=== PATIENT | female | born 1970 | race Hispanic/Latino ===

== ENCOUNTER 2017-02-15 09:13 | Emergency (ER) | payer SELFPAY ==
[~2017-02-15] VITALS: Ht 157.5 cm; Wt 90.0 kg
[2017-02-15 10:44] LABS: HEMATOCRIT 34.4 % (37.0-47.0); HEMOGLOBIN 10.2 g/dl (12.0-16.0); IMMATURE GRANULOCYTES 0.3 % (0.0-1.0); MEAN CELL VOLUME 67.2 fL CALC (80.0-100.0); MEAN CORPUSCULAR HGB 19.9 pG CALC (26.0-32.0); MEAN CORPUSCULAR HGB CONC 29.7 g/L CALC (32.0-36.0); NEUT# 7.47 thou/uL (2.00-7.15); RED BLOOD COUNT 5.12 mill/uL (4.20-5.60); RED CELL DISTRI WIDTH 17.2 % (11.5-15.5)
[2017-02-15 10:45] LABS: URINE BILIRUBIN - DIPSTICK NEGATIVE (NEGATIVE); URINE BLOOD DIPSTICK NEGATIVE (NEGATIVE); URINE CLARITY CLOUDY; URINE COLOR YELLOW; URINE GLUCOSE - DIPSTICK >=1000 mg/dL (NEGATIVE); URINE KETONE TRACE mg/dL (NEGATIVE); URINE LEUK ESTERASE NEGATIVE (NEGATIVE); URINE NITRITE - DIPSTICK POSITIVE (Negative); URINE PH 6.5 (4.5-8.0); URINE PROTEIN - DIPSTICK 100 mg/dL (NEG-TRACE)
[2017-02-15 10:46] LABS: URINE BACTERIA MANY hpf; URINE EPITHELIAL CELLS MANY EPI/hpf (0-FEW)
[2017-02-15 10:57] LABS: ALBUMIN 4.3 g/dL (3.2-5.0); ALKALINE PHOSPHATASE 129 u/l (38-126); AMYLASE 38 u/l (30-110); ANION GAP 16 (6-22 (CALC)); BILIRUBIN, TOTAL 0.5 mg/dL (0.0-1.4); BUN 10 mg/dL (7-17); BUN/CREATININE RATIO 19 (12-20 (CALC)); CALCIUM 9.4 mg/dL (8.4-10.2); CARBON DIOXIDE 22 mmol/l (22-30); CHLORIDE 105 mmol/l (95-108); CREATININE 0.5 mg/dL (0.5-1.0); GFR > 60 ML/MIN (>=60 (CALC)); GFR FOR AFR.AMER. > 60 ML/MIN (>=60 (CALC)); GLUCOSE 270 mg/dL (65-105); LIPASE 64 u/l (23-300); SGOT/AST 17 u/l (14-36); SGPT/ALT 19 u/l (9-52); SODIUM 139 mmol/l (137-146); TOTAL PROTEIN 7.9 g/dL (6.3-8.2)
[2017-02-15 11:08] LABS: MYOGLOBIN 18 ng/mL (0 - 62)
[2017-02-15] MEDS ORDERED: PERCOCET 5/325M1 TAB PO (11:12)
[2017-02-15] MEDS ORDERED: KEFLEX500 MG PO (11:12)
[2017-02-15 12:34] VITALS: BP 141/95
== END 2017-02-15 12:50 | disposition home or self-care (01) | DRG 690 ==
LOC: ED 09:13
PROVIDERS: Emergency Medicine
DX: N12 Tubulo-interstitial nephritis, not specified as acute or chronic (principal); B96.20 Unspecified Escherichia coli [E. coli] as the cause of diseases classified elsewhere; R10.11 Right upper quadrant pain; R10.9 Unspecified abdominal pain

== ENCOUNTER 2019-01-11 20:59 | Emergency (ER) | payer SELFPAY ==
[~2019-01-11] VITALS: Ht 157.5 cm; Wt 82.0 kg
[~2019-01-11 20:59] MED LIST: KEFLEX500 MG PO; PERCOCET 5/325M1 TAB PO
[2019-01-11 22:16] LABS: URINE BILIRUBIN - DIPSTICK NEGATIVE (NEGATIVE); URINE BLOOD DIPSTICK NEGATIVE (NEGATIVE); URINE COLOR YELLOW; URINE GLUCOSE - DIPSTICK NEGATIVE (NEGATIVE); URINE KETONE NEGATIVE (NEGATIVE); URINE LEUK ESTERASE NEGATIVE (NEGATIVE); URINE NITRITE - DIPSTICK NEGATIVE (Negative); URINE PROTEIN - DIPSTICK NEGATIVE (NEG-TRACE); URINE UROBILINOGEN - DIPSTICK 0.2 E.U./dL (0.2)
[2019-01-11 22:39] LABS: HEMATOCRIT 38.7 % (37.0-47.0); HEMOGLOBIN 11.9 g/dl (12.0-16.0); IMMATURE GRANULOCYTES 0.2 % (0.0-5.0); MEAN CORPUSCULAR HGB 22.1 pG CALC (26.0-32.0); MEAN CORPUSCULAR HGB CONC 30.7 g/L CALC (32.0-36.0); NEUT# 6.81 thou/uL (2.00-7.15); RED BLOOD COUNT 5.39 mill/uL (4.20-5.60); RED CELL DISTRI WIDTH 16.9 % (11.5-15.5)
[2019-01-11 22:51] LABS: MEAN CELL VOLUME 71.8 fL CALC (80.0-100.0)
[2019-01-11 23:02] LABS: ALBUMIN 4.2 g/dL (3.2-5.0); ALKALINE PHOSPHATASE 70 u/l (38-126); ANION GAP 15 (6-22 (CALC)); BILIRUBIN, TOTAL 0.3 mg/dL (0.0-1.4); BUN 11 mg/dL (7-17); BUN/CREATININE RATIO 25 (12-20 (CALC)); CARBON DIOXIDE 23 mmol/l (22-30); CHLORIDE 103 mmol/l (95-108); CREATININE 0.4 mg/dL (0.5-1.0); GFR > 60 ML/MIN (>=60 (CALC)); GFR FOR AFR.AMER. > 60 ML/MIN (>=60 (CALC)); LIPASE 59 u/l (23-300); POTASSIUM 4.1 mmol/l (3.5-5.1); SGOT/AST 13 u/l (14-36); SODIUM 137 mmol/l (137-146); TOTAL PROTEIN 7.4 g/dL (6.3-8.2)
[2019-01-11 23:03] LABS: AMYLASE < 30 u/l (30-110)
[2019-01-12] MEDS ORDERED: LOMOTIL2.5 MG PO (00:24)
[2019-01-12 00:50] VITALS: BP 151/69
== END 2019-01-12 00:50 | disposition home or self-care (01) | DRG 392 ==
LOC: ED 20:59
PROVIDERS: Emergency Medicine
DX: K52.9 Noninfective gastroenteritis and colitis, unspecified (principal)

== ENCOUNTER 2019-04-05 | Inpatient (IN) | payer SELFPAY ==
--- NOTE | 2019-04-03 14:53 | NUR ---
AMULATED TO ROOM WITH STEADY GAIT
[2019-04-03 15:25] LABS: HEMATOCRIT 35.7 % (37.0-47.0); HEMOGLOBIN 10.9 g/dl (12.0-16.0); IMMATURE GRANULOCYTES 0.3 % (0.0-5.0); MEAN CELL VOLUME 74.7 fL CALC (80.0-100.0); MEAN CORPUSCULAR HGB 22.8 pG CALC (26.0-32.0); MEAN CORPUSCULAR HGB CONC 30.5 g/L CALC (32.0-36.0); NEUT# 6.47 thou/uL (2.00-7.15); RED BLOOD COUNT 4.78 mill/uL (4.20-5.60); RED CELL DISTRI WIDTH 15.4 % (11.5-15.5)
[2019-04-03 15:47] LABS: ALBUMIN 4.1 g/dL (3.2-5.0); ALKALINE PHOSPHATASE 83 u/l (38-126); ANION GAP 13 (6-22 (CALC)); BILIRUBIN, TOTAL 0.3 mg/dL (0.0-1.4); BUN 12 mg/dL (7-17); BUN/CREATININE RATIO 20 (12-20 (CALC)); CARBON DIOXIDE 25 mmol/l (22-30); CHLORIDE 103 mmol/l (95-108); CREATININE 0.6 mg/dL (0.5-1.0); GFR > 60 ML/MIN (>=60 (CALC)); GFR FOR AFR.AMER. > 60 ML/MIN (>=60 (CALC)); LIPASE 36 u/l (23-300); POTASSIUM 3.6 mmol/l (3.5-5.1); SGOT/AST 12 u/l (14-36); SODIUM 136 mmol/l (137-146); TOTAL PROTEIN 7.5 g/dL (6.3-8.2)
--- NOTE | 2019-04-03 15:51 | NUR ---
PATIENT REPORTS ABD PAIN 5/10 AFTER BEING MEDICATED WITH TORADOL IV.
--- NOTE | 2019-04-03 16:38 | NUR ---
PATIENT AMBULATES TO AND FROM BATHROOM WITH STEADY GAIT.
--- NOTE | 2019-04-03 17:00 | NUR ---
PATIENT REPORTS BEING ON MENSTRUAL CYCLE. URINE SAMPLE COLLECTED.
[2019-04-03 17:17] LABS: URINE BILIRUBIN - DIPSTICK NEGATIVE (NEGATIVE); URINE BLOOD DIPSTICK MODERATE (NEGATIVE); URINE COLOR YELLOW; URINE GLUCOSE - DIPSTICK 500 mg/dL (NEGATIVE); URINE KETONE TRACE mg/dL (NEGATIVE); URINE LEUK ESTERASE NEGATIVE (NEGATIVE); URINE NITRITE - DIPSTICK NEGATIVE (Negative); URINE PROTEIN - DIPSTICK NEGATIVE (NEG-TRACE); URINE UROBILINOGEN - DIPSTICK 0.2 E.U./dL (0.2)
[2019-04-03 17:27] LABS: URINE SQUAMOUS EPITHELIAL CELL FEW EPI/hpf (0-FEW)
--- NOTE | 2019-04-03 17:54 | NUR ---
AT BEDSIDE TO DISCUSS RESULTS AND PLAN OF CARE.
--- NOTE | 2019-04-03 18:50 | NUR ---
BEDSIDE REPORT DONE WITH MARNI GATES
--- NOTE | 2019-04-03 18:50 | NUR ---
BEDSIDE REPORT GIVEN TO MARNI DAVIS. CARE RELINQUISHED.
--- NOTE | 2019-04-03 19:50 | NUR ---
ADMIT ORDERS RECEIVED, FAMILY AT BEDSIDE.
--- NOTE | 2019-04-03 20:50 | NUR ---
INFOMRED PT ADMIT DOCTOR PUT IN NPO AND REGULAR DIET THE FLOOR WILL VERIFY WITH THE PMD AND LET PT KNOW IF SHE CAN EAT.
--- NOTE | 2019-04-03 21:08 | NUR ---
REPORT REC FROM CHRISTIANO GRIDER
--- NOTE | 2019-04-03 21:09 | NUR ---
Admission Note Report Given to: MARJORIE CRAIG Transported by: X Wheelchair Stretcher Transported with: X Nurse Transporter X Patent IV O2 Blocking Machine Tender Location: ICU X MS2 PT TRANSPORTED BY MARNI MARQUEZ INSIDE SALES ADVISOR
--- NOTE | 2019-04-03 21:12 | NUR ---
PT ARRIVED TO MD VIA WC ACCOMPANIED BY COLLEEN RN AND . PT TRANSPORTED TO THE BED WITH A STEADY GAIT. A&O X3. PT STATES PAIN IS 2/10. ORIENTED PT TO ROOM. MOHAN DOROTEO APPLIED. EXPLAINED TO PT THAT SHE WAS ABLE TO HAVE SOMETHING TO EAT UNTIL MIDNIGHT, AFTER MIDNIGHT NPO STATUS WOULD BEGIN, EXPLAINED REASONING BEHIND INTERVENTION, PT VERBALIZED UNDERSTANDING. CLEAR LUNG SOUNDS APON AUSCULTATION. NO EDEMA NOTED. DISCUSSED POC. ASSESSMENT COMPLETED. CALL LIGHT IN REACH. CONTINUE TO MONITOR.
[2019-04-03 21:20] VITALS: BP 151/71
--- NOTE | 2019-04-03 22:05 | NUR ---
ATTEMPT MADE TO CALL ADMITTING PHYSICIAN TO VERIFY DIET ORDERS. NO ANSWER. VOICEMAL LEFT.
--- NOTE | 2019-04-04 00:08 | NUR ---
PT SLEEPING IN BED. NO DISTRESS NOTED. CONTINUE TO MONITOR.
--- NOTE | 2019-04-04 04:08 | NUR ---
PT SLEEPING IN BED. NO DISTRESS NOTED. CONTINUE TO MONITOR
[2019-04-04 04:25] VITALS: BP 124/74
[2019-04-04 05:32] LABS: HEMATOCRIT 33.9 % (37.0-47.0); HEMOGLOBIN 10.5 g/dl (12.0-16.0); IMMATURE GRANULOCYTES 0.3 % (0.0-5.0); MEAN CELL VOLUME 74.3 fL CALC (80.0-100.0); NEUT# 4.78 thou/uL (2.00-7.15); RED BLOOD COUNT 4.56 mill/uL (4.20-5.60); RED CELL DISTRI WIDTH 15.3 % (11.5-15.5)
--- NOTE | 2019-04-04 05:34 | NUR ---
PT LAYING IN BED, NO DISTRESS NOTED. PT DENIES ANY PAIN AT THIS TIME. NO N&V. CONTINUE TO MONITOR.
[2019-04-04 06:03] LABS: ALBUMIN 3.3 g/dL (3.2-5.0); ALKALINE PHOSPHATASE 76 u/l (38-126); ANION GAP 13 (6-22 (CALC)); BUN 14 mg/dL (7-17); BUN/CREATININE RATIO 33 (12-20 (CALC)); CARBON DIOXIDE 22 mmol/l (22-30); CHLORIDE 107 mmol/l (95-108); CREATININE 0.4 mg/dL (0.5-1.0); GFR > 60 ML/MIN (>=60 (CALC)); GFR FOR AFR.AMER. > 60 ML/MIN (>=60 (CALC)); POTASSIUM 3.9 mmol/l (3.5-5.1); SGOT/AST 17 u/l (14-36); SODIUM 137 mmol/l (137-146); TOTAL PROTEIN 6.1 g/dL (6.3-8.2)
[2019-04-04 06:19] LABS: BILIRUBIN, TOTAL 0.5 mg/dL (0.0-1.4)
--- NOTE | 2019-04-04 07:00 | NUR ---
SHIFT CHANGE REPORT, PT AWAKE ALERT AND ORIENTED RESTING IN BED, NO C/O DISCOMFORT AT THIS TIME, IVF INFUSING, BED IN LOWEST POSITION AND CALL MOLINA IN REACH.
[2019-04-04 09:38] VITALS: BP 113/57
--- NOTE | 2019-04-04 10:20 | NUR ---
RADIOLOGY CALLED FOR PT TO BE TRANSFERRED THERT FOR PROCEDURE, VOLUNTEER HERE AT THIS TIME RECEIVING PT AND TRANSFERRING HER VIA W/C OFF UNIT TO CT.
--- NOTE | 2019-04-04 11:03 | NUR ---
JUST RETURNED TO UNIT TRANSPORTED VIA W/C BY VOLUNTEER, STATED SHE TOLETERATED WELL, SETTLED BACK IN BED AT THIS TIME.
--- NOTE | 2019-04-04 11:15 | NUR ---
RESTING IN BED, 2X2 DRESSING IN PLACE TO RIGHT LOWER ABD AT SITE OF PUNCTURE, DENIES PAIN BUT REPORTS SOME PAIN ON DEEP-BREATHING, WILL CONTINUE TO MONITOR.
[2019-04-04 15:46] VITALS: BP 145/66
--- NOTE | 2019-04-04 16:00 | NUR ---
RESTING IN BED, NO C/O DISCOMFORT, BEGGING FOR SOMETHING OT EAT, SAP DATA ANALYST NOTIFIED AND GAVE ORDERS.
--- NOTE | 2019-04-04 18:59 | NUR ---
REPORT RECEIVED FROM MARNI QUINONEZ. PT ALERT AND ORIENTED. PT SET UP TO GET A SHOWER PER REQUEST. SAFETY PRECAUTIONS IN PLACE. WILL CONTINUE TO MONITOR.
[2019-04-04 19:10] VITALS: BP 140/66
--- NOTE | 2019-04-04 21:45 | NUR ---
PT RESTING IN BED. RESPIRATIONS EVEN AND UNLABORED ON RA. LUNGS SOUND CLEAR. PEDAL PULSES STRONG. PT DENIES ANY PAIN OR DISCOMFORT AT THIS TIME. SAFETY PRECAUTIONS IN PLACE. WILL CONTINUE TO MONITOR.
[~2019-04-05] MED LIST changes: +LOMOTIL2.5 MG PO; +METFORMIN500 MG PO
--- NOTE | 2019-04-05 00:17 | NUR ---
PT RESTING IN BED. ROOM TEMP ADJUSTED PER PT REQUEST. NO S/S OF DISTRESS AT THIS TIME. SAFETY PRECAUTIONS IN PLACE. WILL CONTINUE TO MONITOR.
[2019-04-05 04:00] VITALS: BP 133/80
--- NOTE | 2019-04-05 04:02 | NUR ---
PT RESTING IN BED. NO S/S OF DISTRESS AT THIS TIME. RESPIRATIONS EVEN AND UNLABORED. SAFETY PRECAUTIONS IN PLACE.
[2019-04-05 05:25] LABS: HEMATOCRIT 32.5 % (37.0-47.0); MEAN CELL VOLUME 73.5 fL CALC (80.0-100.0); MEAN CORPUSCULAR HGB 22.6 pG CALC (26.0-32.0); MEAN CORPUSCULAR HGB CONC 30.8 g/L CALC (32.0-36.0); RED BLOOD COUNT 4.42 mill/uL (4.20-5.60)
[2019-04-05 05:55] LABS: ANION GAP 12 (6-22 (CALC)); BUN 10 mg/dL (7-17); BUN/CREATININE RATIO 23 (12-20 (CALC)); CARBON DIOXIDE 22 mmol/l (22-30); CHLORIDE 108 mmol/l (95-108); CREATININE 0.4 mg/dL (0.5-1.0); GFR > 60 ML/MIN (>=60 (CALC)); GFR FOR AFR.AMER. > 60 ML/MIN (>=60 (CALC)); MAGNESIUM 1.7 mg/dL (1.6-2.3); POTASSIUM 3.9 mmol/l (3.5-5.1); SODIUM 138 mmol/l (137-146)
[2019-04-05 08:00] VITALS: BP 151/71
[2019-04-05 15:09] VITALS: BP 117/69
[2019-04-05 18:16] VITALS: BP 153/87
--- NOTE | 2019-04-05 19:30 | NUR ---
PT RESTING IN BED, NO SIGNS OF DISTRESS NOTED, RESP EVEN AND UNLABORED. PT ALERT AND ORIENTED X3,BRITISH SPEAKING, MAINTENANCE PAINTER SPEAKS BRITISH. DISCUSSED POC, PT AGREES TO NPO AFTER MIDNIGHT, AGREES WITH PLAN. ASSESSMENT COMPLETED, CALL LIGHT IN REACH,CONTINUE TO MONITOR.
--- NOTE | 2019-04-05 21:00 | NUR ---
PT RESTING IN BED, DISCUSSED CONSENT, PT READ AND UNDERSTOOD CONSENT. SIGNED BY PT. VOICES NO NEEDS OR COMPLAINTS AT THIS TIME. SCD'S PLACED, AND INCENTIVE SPIROMTETER INSTRUCTION GIVEN, DEMONSTRATED USE IS VOLUME 1000 ML. CALL LIGHT IN REACH,CONTINUE TO MONITOR.
--- NOTE | 2019-04-06 | NUR ---
PT RESTING IN BED, DISCUSSED NPO STATUS. WATER REMOVED. ZOSYN INFUSING. CALL LIGHT IN REACH,CONTINUE TO MONITOR.
[2019-04-06 03:48] VITALS: BP 140/77
[2019-04-06 05:18] LABS: HEMATOCRIT 32.2 % (37.0-47.0); HEMOGLOBIN 10.1 g/dl (12.0-16.0); IMMATURE GRANULOCYTES 0.5 % (0.0-5.0); MEAN CORPUSCULAR HGB 23.2 pG CALC (26.0-32.0); MEAN CORPUSCULAR HGB CONC 31.4 g/L CALC (32.0-36.0); NEUT# 3.55 thou/uL (2.00-7.15); RED BLOOD COUNT 4.35 mill/uL (4.20-5.60)
[2019-04-06 05:46] LABS: ANION GAP 12 (6-22 (CALC)); BUN 5 mg/dL (7-17); BUN/CREATININE RATIO 12 (12-20 (CALC)); CARBON DIOXIDE 23 mmol/l (22-30); CHLORIDE 108 mmol/l (95-108); CREATININE 0.4 mg/dL (0.5-1.0); GFR > 60 ML/MIN (>=60 (CALC)); GFR FOR AFR.AMER. > 60 ML/MIN (>=60 (CALC)); MAGNESIUM 1.8 mg/dL (1.6-2.3); POTASSIUM 3.9 mmol/l (3.5-5.1); SODIUM 138 mmol/l (137-146)
--- NOTE | 2019-04-06 07:40 | NUR ---
PT AWAKE AND ALERT. UNDERSTANDS PLAN FOR OR THIS MORNING. PT IN SHOWER WITH ASSIST BY ORTHOPAEDIC PHYSICIAN ASSISTANT. NO DISTRESS. DENIES PAIN.
[2019-04-06 08:04] VITALS: BP 139/78
--- NOTE | 2019-04-06 09:09 | NUR ---
SPOKE WITH PATIENT USING TRANSLATION PHONE CLEANING PORTER [id number]. PT DENIES HAVING ANY QUESTIONS ELATED TO PENDING PROCEDURE. PT INSTRUCTED TO REMOVE DENTURES AND NAIL MAURITIAN. PT REPORTS THAT SHE IS UNABLE TO REMOVE NAILS OR NAIL MAURITIAN.
--- NOTE | 2019-04-06 09:58 | NUR ---
PT TRANSPORTED TO OR BY [facility]. REPORT GIVEN. SL FLUSHES WELL.
--- NOTE | 2019-04-06 13:45 | NUR ---
RECEIVED PATIENT FROM RECOVERY ROOM NURSE. PT MOANING AND C/O PAIN AFTER BEING MOVED TO BED. DRSG X4 INTACT TO ABDOMEN. NO DISTRESS. IVF INFUSING TO RIGHT FOREARM. 16 FR LINDO DRAINING CLEAR YELLOW URINE.
[2019-04-06 19:33] VITALS: BP 128/70
--- NOTE | 2019-04-06 23:46 | NUR ---
PT MEDICATED FOR PAIN AND IV ANTIBIOTIC THERAPY. DENIES ANY OTHER NEEDS AT THIS TIME. NO S/O DISTRESS AT THIS TIME. RETAIL HELPER IN TO INTERPRET.
[2019-04-07 00:10] VITALS: BP 134/74
[2019-04-07 04:00] VITALS: BP 143/75
[2019-04-07 05:35] LABS: HEMATOCRIT 30.6 % (37.0-47.0); HEMOGLOBIN 9.4 g/dl (12.0-16.0); IMMATURE GRANULOCYTES 0.2 % (0.0-5.0); MEAN CELL VOLUME 74.8 fL CALC (80.0-100.0); MEAN CORPUSCULAR HGB CONC 30.7 g/L CALC (32.0-36.0); NEUT# 6.65 thou/uL (2.00-7.15); RED BLOOD COUNT 4.09 mill/uL (4.20-5.60)
[2019-04-07 05:46] LABS: ANION GAP 10 (6-22 (CALC)); BUN 6 mg/dL (7-17); BUN/CREATININE RATIO 15 (12-20 (CALC)); CARBON DIOXIDE 20 mmol/l (22-30); CHLORIDE 110 mmol/l (95-108); CREATININE 0.4 mg/dL (0.5-1.0); GFR > 60 ML/MIN (>=60 (CALC)); GFR FOR AFR.AMER. > 60 ML/MIN (>=60 (CALC)); POTASSIUM 3.4 mmol/l (3.5-5.1); SODIUM 137 mmol/l (137-146)
--- NOTE | 2019-04-07 06:33 | NUR ---
LINDO CATHETER REMOVED, PT TOLERATED WELL.
--- NOTE | 2019-04-07 08:00 | NUR ---
REPORT RECEIVED FROM MARNI DSOUZA. PT SITTING UPRIGHT IN BED. REPORTS PAIN WITH MOVEMENT TO ABDOMEN. SPLINTING REVIEWED WITH PT. I.S. USE REVIEWED AND ENCOURAGED. DRSG'S TO ABDOMEN X [address] CALL LIGHT REVIEWED AND IN REACH. PT STATES UNDERSTANDING.
[2019-04-07 08:38] VITALS: BP 123/62
--- NOTE | 2019-04-07 10:00 | NUR ---
TERESA BELCHER IN TO SEE PT. AT THIS TIME.
--- NOTE | 2019-04-07 12:00 | NUR ---
DR. HAYDEN IN TO SEE PT.
--- NOTE | 2019-04-07 14:00 | NUR ---
DR. FINLEY IN TO SEE PT AT THIS TIME.
[2019-04-07 16:32] VITALS: BP 142/72
--- NOTE | 2019-04-07 17:00 | NUR ---
PT AMBULATING IN HALLWAYS W/ FAMILY. TOLERATING ACTIVITY WELL.
--- NOTE | 2019-04-07 18:50 | NUR ---
REPORT RECEIVED FROM MARNI DODGE. PT RESTING IN BED, FAMILY AT BEDSIDE. NO S/S OF DISTRESS AT THIS TIME. WILL CONTINUE TO MONITOR.
[2019-04-07 19:00] VITALS: BP 134/72
--- NOTE | 2019-04-07 21:45 | NUR ---
PT RESTING IN BED, ALERT AND ORIENTED. RESPIRATIONS EVEN AND UN LABORED ON RA. LUNG ARE CLEAR. PEDAL PULSES ARE STRONG. PT REPORTS ONLY HAVING PAIN WHEN DEEP BREATHING, COUGHING, OR MOVING. PT TO BE MEDICATED PER EMAR ORDERS. SAFETY PRECAUTIONS IN PLACE. WILL CONTINUE TO MONITOR.
--- NOTE | 2019-04-08 00:35 | NUR ---
PT RESTING IN BED. RESPIRATIONS EVEN AND UNLABORED ON RA. NO S/S OF DISTRESS AT THIS TIME. SAFETY PRECAUTIONS IN PLACE. WILL CONTINUE TO MONTIOR.
--- NOTE | 2019-04-08 04:08 | NUR ---
PT RESTING IN BED WITH EYES CLOSED. NO S/S OF DISTRESS AT THIS TIME. WILL CONTINUE TO MONITOR.
[2019-04-08 04:30] VITALS: BP 145/81
[2019-04-08 05:49] LABS: HEMATOCRIT 28.8 % (37.0-47.0); HEMOGLOBIN 8.8 g/dl (12.0-16.0); MEAN CELL VOLUME 74.6 fL CALC (80.0-100.0); MEAN CORPUSCULAR HGB 22.8 pG CALC (26.0-32.0); MEAN CORPUSCULAR HGB CONC 30.6 g/L CALC (32.0-36.0); RED BLOOD COUNT 3.86 mill/uL (4.20-5.60); RED CELL DISTRI WIDTH 15.2 % (11.5-15.5)
[2019-04-08 06:42] LABS: ANION GAP 10 (6-22 (CALC)); BUN 6 mg/dL (7-17); BUN/CREATININE RATIO 16 (12-20 (CALC)); CARBON DIOXIDE 23 mmol/l (22-30); CHLORIDE 109 mmol/l (95-108); CREATININE 0.3 mg/dL (0.5-1.0); GFR > 60 ML/MIN (>=60 (CALC)); GFR FOR AFR.AMER. > 60 ML/MIN (>=60 (CALC)); MAGNESIUM 1.8 mg/dL (1.6-2.3); POTASSIUM 3.2 mmol/l (3.5-5.1); SODIUM 138 mmol/l (137-146)
[2019-04-08 08:05] VITALS: BP 148/72
--- NOTE | 2019-04-08 08:05 | NUR ---
ASSESSMENT IS COMPLETED: IV SITE IS FREE FROM REDNESS OR EDEMA. HR IS REG, PULSES ARE STRONG X4, ABD IS SOFT WITH ACTIVE BS, BREATH SOUNDS ARE CLEAR,BILATERALLY, SCD IN PLACE. DRESSING ON ABD IS CDI. PT SPOKE VERY GOOD [place]IAN. CONTINEU TO OBSERVE AND MONITOR.
--- NOTE | 2019-04-08 12:30 | NUR ---
PT CONTINUES TO SIT IN THE CHAIR, NO DISTRESS NOTED. HAS BEEN TALKING TO HER FAMILY ON THE COMPUTER
--- NOTE | 2019-04-08 16:00 | NUR ---
PT IS SITTING IN THE CHAIR WITH FAMILY IN THE ROOM. IV SITE IS FREE FROM REDNESS OR EDEMA.
[2019-04-08] MEDS ORDERED: AMOXICILLIN/CL875 MG PO (16:46)
[2019-04-08] MEDS ORDERED: JANUVIA50 MG PO (16:47)
[2019-04-08] MEDS ORDERED: PERCOCET 5/325M1 TAB PO (16:48)
--- NOTE | 2019-04-08 18:00 | NUR ---
DISCHARGE INSTRUCTIONS GIVEN AND VERBALIZED UNDERSTANDING. VIKTORIA OGDEN LPN INTERPRET THE INSTRUCTIONS AND ALSO EXPLAINED ABOUT VISITING WITH DR. HAYDEN, IF ANY PROBLEMS OCCUR. UNDERSTOOD., IV SITE DISCONTINUED CATHETER INTAC.T
--- NOTE | 2019-04-08 18:46 | NUR ---
Discharge instructions given. Patient verbalizes understanding of same. Discharged in stable condition via Wheelchair to Home with family. All belongings sent with pt.
== END 2019-04-08 18:08 | disposition home or self-care (01) | DRG 580 ==
PROVIDERS: Family Medicine; Nurse Practitioner Family; Surgery; ADMIT Internal Medicine
PROC: 0W9G3ZZ Drainage of Peritoneal Cavity, Percutaneous Approach (ICD-10-PCS; principal; 2019-04-04)
PROC: 0KBK0ZZ Excision of Right Abdomen Muscle, Open Approach (ICD-10-PCS; 2019-04-06)
PROC: 0WJF4ZZ Inspection of Abdominal Wall, Percutaneous Endoscopic Approach (ICD-10-PCS; 2019-04-06)
DX: L02.211 Cutaneous abscess of abdominal wall (principal); K91.86 Retained cholelithiasis following cholecystectomy; K43.2 Incisional hernia without obstruction or gangrene; E11.9 Type 2 diabetes mellitus without complications; I10 Essential (primary) hypertension; D63.8 Anemia in other chronic diseases classified elsewhere; F17.210 Nicotine dependence, cigarettes, uncomplicated; B95.4 Other streptococcus as the cause of diseases classified elsewhere; Y83.6 Removal of other organ (partial) (total) as the cause of abnormal reaction of the patient, or of later complication, without mention of misadventure at the time of the procedure; Z79.84 Long term (current) use of oral hypoglycemic drugs
CPT/HCPCS: J0131; J2710; Q9967

== ENCOUNTER 2022-05-15 09:47 | Emergency (ER) | payer SELFPAY ==
[~2022-05-15] VITALS: Ht 160 cm; Wt 79.4 kg
[~2022-05-15 09:47] MED LIST changes: +AMOXICILLIN/CL875 MG PO; +JANUVIA50 MG PO
[2022-05-15 09:58] VITALS: BP 148/109
[2022-05-15 10:00] VITALS: BP 155/95
[2022-05-15 10:24] LABS: BASO% 0.3 % (0-3); EOS% 0.4 % (0-8); IMMATURE GRANULOCYTES 0.3 % (0.0-5.0); LYMPH% 27.7 % (15-41); MONO% 3.8 % (2-13); NEUT# 4.79 thou/uL (2.00-7.15); NEUT% 67.5 % (42-76); RED BLOOD COUNT 5.08 mill/uL (4.20-5.60); RED CELL DISTRI WIDTH 13.6 % (11.5-15.5)
[2022-05-15 10:31] LABS: HEMATOCRIT 41.3 % (37.0-47.0); HEMOGLOBIN 13.2 g/dl (12.0-16.0); MEAN CELL VOLUME 81.3 fL CALC (80.0-100.0)
[2022-05-15 10:50] LABS: INTERNATIONAL NORMALIZED RATIO 0.9 RATIO (0.7-1.3); PROTHROMBIN TIME 9.3 SECONDS (9.0-12.5)
[2022-05-15 10:51] LABS: ALKALINE PHOSPHATASE 73 u/l (38-126); BUN 14 mg/dL (7-17); BUN/CREATININE RATIO 29 (12-20 (CALC)); CARBON DIOXIDE 24 mmol/l (22-30); CHLORIDE 103 mmol/l (95-108); CREATININE 0.5 mg/dL (0.5-1.0); GFR FOR AFR.AMER. > 60 ML/MIN (>=60 (CALC)); GFR OTHER RACES > 60 ML/MIN (>=60 (CALC)); SGOT/AST 18 u/l (14-36); SODIUM 137 mmol/l (137-146); TOTAL PROTEIN 6.9 g/dL (6.3-8.2)
[2022-05-15 10:52] LABS: ALBUMIN 4.3 g/dL (3.2-5.0); ANION GAP 14 (6-22 (CALC)); BILIRUBIN, TOTAL 0.2 mg/dL (0.02-1.3); POTASSIUM 4.1 mmol/l (3.5-5.1)
[2022-05-15] MEDS ORDERED: CEPHALEXIN500 M1 PO (11:21)
[2022-05-15 11:26] VITALS: BP 155/95
== END 2022-05-15 11:37 | disposition home or self-care (01) | DRG 605 ==
LOC: ED 09:47
PROVIDERS: Family Medicine
DX: S81.852A Open bite, left lower leg, initial encounter (principal); W59.11XA Bitten by nonvenomous snake, initial encounter; E11.9 Type 2 diabetes mellitus without complications; I10 Essential (primary) hypertension; Z79.84 Long term (current) use of oral hypoglycemic drugs